=== PATIENT | female | born 1990 | race Caucasian/White ===

== ENCOUNTER 2017-04-09 17:53 | Emergency (ER) | payer BC ==
[2017-04-09 18:56] LABS: Appearance,Urine Clear (Clear); Bilirubin,Urine Negative (Negative); Glucose,Urine (UA) Negative (Negative); Ketones,Urine Negative (Negative); Protein,Urine Negative (Negative); Specific Gravity,Urine 1.004 (1.001-1.035)
[2017-04-09 18:57] LABS: Leukocyte Esterase,Urine Negative (Negative); Nitrite,Urine Negative (Negative); UA Billing (MACRO vs. MICRO) CHEM; Urobilinogen,Urine <2.0 mg/dL (<2.0)
[2017-04-09] MEDS ORDERED: SULFAMETH-TMP DS STARTER PACK 2 TAB BTL PO STA (19:49)
--- NOTE | 2017-04-09 19:49 | ED ---
Skin/Abscess/FB HPI - General Chief complaint: Skin/Abscess/Foreign Body Stated complaint: pelvic cyst Time Seen by Provider: 04/09/17 18:17 Source: patient, RN notes reviewed, old records reviewed Mode of arrival: ambulatory Limitations: no limitations - History of Present Illness Initial comments: This is a pleasant 26 year old female with cheif compliant of left sided labial abscess for one day. She reports that she has had many barolin abscess, and did have a marsupialization procedure. She reports that was 2 years ago, and has not had a reoocurrance until today. She denies vaginal discharge or concern for STD. Denies dysuria. She denies fever, chills. She reports that it is apart of her skene glad, and she has had the barholin glands removed. - Related Data Home Medications Medication Instructions Recorded Confirmed Lysine 500 mg PO DAILY 04/09/17 04/09/17 Norgestimate-Ethinyl Estradiol 1 tab PO HS 04/09/17 04/09/17 [Tri-Sprintec Tablet] [place]-3 Fatty Acids/Fish Oil [Fish 1 cap PO DAILY 04/09/17 04/09/17 Oil 1,000 mg Softgel] Vitamin C/Biotin [Hair, Skin and 1 tab PO DAILY 04/09/17 04/09/17 Nails] Previous Rx's Medication Instructions Recorded Acetaminophen-Codeine 300-30mg 1 tab PO Q4H PRN #15 tablet 04/09/17 [Tylenol #3] Sulfamethox-Tmp 800-160Mg [Bactrim 2 tab PO Q12HR #28 tab 04/09/17 DS 800-160 mg] Allergies Allergy/AdvReac Type Severity Reaction Status Date / Time No Known Allergies Allergy Verified 04/09/17 22:38 Review of Systems ROS Statement: Those systems with pertinent positive or pertinent negative responses have been documented in the HPI. ROS Other: All systems not noted in ROS Statement are negative. Past Medical History Past Medical History: No Reported History History of Any Multi-Drug Resistant Organisms: None Reported Past Surgical History: Adenoidectomy, Tonsillectomy Additional Past Surgical History / Comment(s): right fallopian tube removed due to ectopic Past Psychological History: No Psychological Hx Reported Smoking Status: Never smoker Past Alcohol Use History: Occasional Past Drug Use History: None Reported General Exam - General Exam Comments Initial Comments: Pleasant 26 year old female, no distress. Limitations: no limitations General appearance: alert, in no apparent distress Head exam: Present: atraumatic, normocephalic, normal inspection Eye exam: Present: normal appearance, PERRL, EOMI. Absent: scleral icterus, conjunctival injection, periorbital swelling ENT exam: Present: normal exam, mucous membranes moist Neck exam: Present: normal inspection. Absent: tenderness, meningismus, lymphadenopathy Respiratory exam: Present: normal lung sounds bilaterally. Absent: respiratory distress, wheezes, rales, rhonchi, stridor Cardiovascular Exam: Present: regular rate, normal rhythm, normal heart sounds. Absent: systolic murmur, diastolic murmur, rubs, gallop, clicks GI/Abdominal exam: Present: soft, normal bowel sounds. Absent: distended, tenderness, guarding, rebound, rigid External exam: Present: erythema (over left superior labia near skene gland. ), swelling. Absent: normal external exam, lesions, lacerations Neurological exam: Present: alert, oriented X3, CN II-XII intact Psychiatric exam: Present: normal affect, normal mood Course Vital Signs 04/09/17 04/09/17 17:55 20:02 Temperature 98.0 F 97.8 F Pulse Rate 108 H 95 Respiratory 20 18 Rate Blood Pressure 137/78 117/71 O2 Sat by Pulse 98 97 Oximetry Procedures - Incision & Drainage Time Out Performed?: Yes Site: vulva/vagina (left labia majora) Size (cm): 4 Anesthetic Used: lidocaine 1% Amount (mLs): 3 I&D Cleaning Method: Iodine Needle Aspiration Performed?: No (As injecting lidocaine, patient started to drain from duct opening. ) I&D Drainage Obtained: Pus Culture Obtained?: Yes Patient Tolerated Procedure: well, no complications Medical Decision Making - Medical Decision Making This is a pleasant 26 year old female with cheif compliant of left sided labial abscess for one day. She reports that she has had many barolin abscess, and did have a marsupialization procedure. She reports that was 2 years ago, and has not had a reoocurrance until today. As incision and drainage was attempted, after installing lidocaine the abscess started to drain from the skene duct and the pus was removed from the natural opening. Discussed this with patient and she does not want to have to have word catheter. Discussed sitz bath and firm pressure to remove pus if it returns. Wound culture obtained. Patient will be started on bactrim DS. REturn parameters discussed. - Lab Data Lab Results 04/09/17 04/09/17 Range/Units 18:49 18:49 Urine Color Light Yellow Urine Appearance Clear (Clear) Urine pH 7.0 (5.0-8.0) Ur Specific [place] 1.004 (1.001-1.035) Urine Protein Negative (Negative) Urine Glucose (UA) Negative (Negative) Urine Ketones Negative (Negative) Urine Blood Negative (Negative) Urine Nitrite Negative (Negative) Urine Bilirubin Negative (Negative) Urine Urobilinogen <2.0 (<2.0) mg/dL Ur Leukocyte Esterase Negative (Negative) Urine HCG, Qual Not Detected (Not Detectd) Disposition Clinical Impression: [place]'s duct abscess Disposition: HOME SELF-CARE Condition: Good Instructions: Abscess (ED) Additional Instructions: Patient advised to follow-up with development and housing director. If it does continue to be swell apply firm pressure and do warm compresses over the area. Patient also advised to do sits baths. Take your entire antibiotic prescription. Return to the emergency department if any alarming signs or symptoms occur. If it does seem to reoccur very quickly and does not subside with pressure and warm compresses patient should return for incision and drainage. Prescriptions: Sulfamethox-Tmp 800-160Mg [Bactrim DS 800-160 mg] 2 tab PO Q12HR #28 tab Referrals: Kirstin Navarro MD [Primary Care Provider] - 1-2 days Marlon Mays DO [Doctor of Osteopathic Medicine] - 1-2 days Emily Claire MD [STAFF PHYSICIAN] - 1-2 days Time of Disposition: 19:47
[2017-04-09 20:04] VITALS: BP 117/71; PULSE 95; RESP 18; TEMP 97.8
== END 2017-04-09 20:08 | disposition home or self-care (01) ==
LOC: EC 17:53
DX: N34.0 Urethral abscess (principal); Z79.3 Long term (current) use of hormonal contraceptives; Z79.899 Other long term (current) drug therapy
CPT/HCPCS: 81003; 81025; 87070; 87205; 99283

== ENCOUNTER 2017-04-09 21:58 | Emergency (ER) | payer BC ==
[2017-04-09 22:12] VITALS: BP 134/79; PULSE 100; RESP 18; TEMP 98.5
--- NOTE | 2017-04-09 23:33 | ED ---
General Adult HPI - General Chief complaint: Skin/Abscess/Foreign Body Stated complaint: female Time Seen by Provider: 04/09/17 22:48 Source: patient, RN notes reviewed Mode of arrival: ambulatory Limitations: no limitations - History of Present Illness Initial comments: This is a pleasant 26 year old female with cheif compliant of left sided labial abscess for one day. She reports that she has had many barolin abscess, and did have a marsupialization procedure. She reports that was 2 years ago, and has not had a reoocurrance until today. Patient was seen earlier today, and incision and drainage was attempted, however during lidocaine instillation the area started to drain from natural opening. Patient at that time did not want to have word catheter placed. She reports it has refilled since leaving 3 hours ago, and she cannot remove the pus on her own. - Related Data Home Medications Medication Instructions Recorded Confirmed Lysine 500 mg PO DAILY 04/09/17 04/09/17 Norgestimate-Ethinyl Estradiol 1 tab PO HS 04/09/17 04/09/17 [Tri-Sprintec Tablet] [place]-3 Fatty Acids/Fish Oil [Fish 1 cap PO DAILY 04/09/17 04/09/17 Oil 1,000 mg Softgel] Vitamin C/Biotin [Hair, Skin and 1 tab PO DAILY 04/09/17 04/09/17 Nails] Previous Rx's Medication Instructions Recorded Acetaminophen-Codeine 300-30mg 1 tab PO Q4H PRN #15 tablet 04/09/17 [Tylenol #3] Sulfamethox-Tmp 800-160Mg [Bactrim 2 tab PO Q12HR #28 tab 04/09/17 DS 800-160 mg] Allergies Allergy/AdvReac Type Severity Reaction Status Date / Time No Known Allergies Allergy Verified 04/09/17 22:38 Review of Systems ROS Statement: Those systems with pertinent positive or pertinent negative responses have been documented in the HPI. ROS Other: All systems not noted in ROS Statement are negative. Past Medical History Past Medical History: No Reported History History of Any Multi-Drug Resistant Organisms: None Reported Past Surgical History: Adenoidectomy, Tonsillectomy Additional Past Surgical History / Comment(s): right fallopian tube removed due to ectopic Past Psychological History: No Psychological Hx Reported Smoking Status: Never smoker Past Alcohol Use History: Occasional Past Drug Use History: None Reported General Exam Limitations: no limitations General appearance: alert, in no apparent distress Head exam: Present: atraumatic, normocephalic, normal inspection Eye exam: Present: normal appearance, PERRL, EOMI. Absent: scleral icterus, conjunctival injection, periorbital swelling ENT exam: Present: normal exam, mucous membranes moist Neck exam: Present: normal inspection. Absent: tenderness, meningismus, lymphadenopathy Respiratory exam: Present: normal lung sounds bilaterally. Absent: respiratory distress, wheezes, rales, rhonchi, stridor Cardiovascular Exam: Present: regular rate, normal rhythm, normal heart sounds. Absent: systolic murmur, diastolic murmur, rubs, gallop, clicks GI/Abdominal exam: Present: soft, normal bowel sounds. Absent: distended, tenderness, guarding, rebound, rigid External exam: Present: erythema, swelling (left skene duct abscess. ). Absent : normal external exam Back exam: Present: normal inspection Neurological exam: Present: alert, oriented X3, CN II-XII intact Psychiatric exam: Present: normal affect, normal mood Skin exam: Present: warm, dry, intact, normal color. Absent: rash Course Vital Signs 04/09/17 22:09 Temperature 98.5 F Pulse Rate 100 Respiratory 18 Rate Blood Pressure 134/79 O2 Sat by Pulse 100 Oximetry Procedures - Incision & Drainage Time Out Performed?: Yes Indication: left skene duct absess Site: vulva/vagina Size (cm): 4 Anesthetic Used: lidocaine 1% Amount (mLs): 2 I&D Cleaning Method: Betadine Sterile Field Used?: Yes Scalpel Used: #11 I&D Drainage Obtained: Pus, Blood Packing: Other (word catheter with 3cc fluid) Patient Tolerated Procedure: well, no complications, other Medical Decision Making - Medical Decision Making This is a pleasant 26 year old female with cheif compliant of left sided labial abscess for one day. Patient was seen earlier today, and incision and drainage was attempted, however during lidocaine instillation the area started to drain from natural opening. Patient at that time did not want to have word catheter placed. She reports it has refilled since leaving 3 hours ago, and she cannot remove the pus on her own. Patietn was re incised and drained. Word catheter was installed with 3cc. Patient previously discharged with bactrim DS, and avised to follow up with OBGYN for remoaval, return parameters discussed. Disposition Clinical Impression: [place]'s duct abscess Disposition: HOME SELF-CARE Condition: Good Instructions: Abscess Incision and Drainage (ED) Additional Instructions: Patient needs to leave the Word catheter in. Follow-up with oncologist on Wednesday. Return if there is any competitions or concerns. Prescriptions: Acetaminophen-Codeine 300-30mg [Tylenol #3] 1 tab PO Q4H PRN #15 tablet PRN Reason: Pain Referrals: Kirstin Navarro MD [Primary Care Provider] - 1-2 days Time of Disposition: 23:32
== END 2017-04-09 23:53 | disposition home or self-care (01) ==
LOC: EC 21:58
DX: N34.0 Urethral abscess (principal); Z79.3 Long term (current) use of hormonal contraceptives; Z79.899 Other long term (current) drug therapy
CPT/HCPCS: 99282

== ENCOUNTER → 2017-08-30 | Outpatient (CLI) | payer BC ==
--- NOTE | 2017-08-30 16:19 | US ---
EXAMINATION TYPE: US thyroid st tissue head/neck DATE OF EXAM: 08/30/2017 COMPARISON: NONE CLINICAL HISTORY: 27-year-old female Thyroid nodule E04.1. Pt states fatigue, neck pain, family histo ry of thyroid CA TECHNIQUE: Multiple sonographic images of the thyroid gland are obtained. FINDINGS: GLAND SIZE: Right Lobe: 4.4 x 1.3 x 1.4 cm Left Lobe: 4.6 x 1.3 x 1.2 cm Isthmus Thickness: 0.3 cm Slight diffuse glandular heterogeneity on both sides. Bilateral neck scanned, no evidence of lymphadenopathy. IMPRESSION: No discrete nodule. Slightly heterogeneous appearance to the thyroid gland may be normal variation. C orrelate with thyroid function tests.
== END | disposition home or self-care (01) ==
LOC: RADUSWWP 14:09
PROVIDERS: ATTEND Family Medicine
DX: E07.89 Other specified disorders of thyroid (principal)
CPT/HCPCS: 76536

== ENCOUNTER → 2018-12-22 | Outpatient (CLI) | payer BC ==
--- NOTE | 2018-12-22 08:24 | CT ---
CT brain with contrast HISTORY: Migraine headache Helical acquisition obtained through the brain during dynamic administration of intravenous contrast, 100 cc Isovue-300 IV. DLP 1017.90. Automated exposure control for dose reduction technique There is inflammatory change within the bilateral maxillary sinus, ethmoid air cells. Orbits show sym metric appearance. There is no evident hemorrhage or hydrocephalus. No abnormal enhancement following contrast administration. Calvarium is intact. IMPRESSION: Sinus disease. Unremarkable postcontrast brain CT
== END | disposition home or self-care (01) ==
LOC: RADCTMAIN 07:01
PROVIDERS: ATTEND Family Medicine
DX: G43.909 Migraine, unspecified, not intractable, without status migrainosus (principal)
CPT/HCPCS: 70460; Q9967

== ENCOUNTER → 2020-03-07 | Outpatient (CLI) | payer BC ==
--- NOTE | 2020-03-07 09:32 | MR ---
PRE AND POSTCONTRAST ENHANCED MRI OF THE BRAIN: CLINICAL HISTORY: Migraine without aura CONTRAST: 5.5ml Gadavist Multiplanar and multispin-echo imaging of the brain was performed both before and after the administr ation of contrast. The ventricles, basal cisterns and sulci overlying the cerebral convexities are within normal limits. There is no evidence for midline shift or mass effect. Acute intracranial hemorrhage or extra-axial collection is not evident. There are no abnormal areas of increased or decreased signal intensity within the brain parenchyma. Following contrast administration, there is no evidence for pathologic enhancement or enhancing mass. Chronic paranasal sinusitis. Mastoid air cells are well aerated. IMPRESSION: Unremarkable pre and postcontrast enhanced MRI of the brain. Chronic sinusitis.
== END | disposition home or self-care (01) ==
LOC: RADMRIMAIN 08:05
PROVIDERS: ATTEND Family Medicine
DX: G43.011 Migraine without aura, intractable, with status migrainosus (principal)
CPT/HCPCS: 70553; A9585